=== PATIENT | female | born 1935 | race Caucasian/White ===

== ENCOUNTER 2016-12-10 19:16 | Observation (INO) | payer OTHER ==
--- NOTE | ~2016-12-10 | DS ---
Unit #: [id number] #: [id number] Patient: ESSIE IGLESIAS [id number] [address] [address] [id number] I MR#: [id number] NAME: ESSIE IGLESIAS ROOM: 303 Age: 81 Sex: F Admission Date: 12/10/2016 : 1935 Discharge Date: 12/11/2016 Attending Physician: Milton Jarquin M.D. Primary Care Physician: Dayne Alfaro M.D. DISCHARGE SUMMARY PRINCIPAL DIAGNOSES 1. Acute sinusitis and mastoiditis. 2. Dizziness secondary to #1 in combination with chronic dizziness. 3. Deconditioning. 4. Recent history of stroke. 5. Hypothyroidism with stable TSH. CONSULTANTS None. PROCEDURES None. CLINICAL HISTORY/HOSPITAL COURSE Ms. Iglesias is a 81-year-old female [facility] who presents back to the emergency department with swelling of her legs and complaining of dizziness which she describes to me as lightheadedness. CT scan of the head reveals left sphenoid sinusitis and mastoiditis and chronic ischemic changes and she was placed in observation for further evaluation. Today, patient states her dizziness is better. She is still complaining feeling a bit dizzy but is better. She is seen by physical therapy suggesting recurrent subacute rehab and, unfortunately, I don't have any inpatient criteria for this patient which I have discussed with her extensively. I will reinitiate home health and complete a course of antibiotics. DISCHARGE CONDITION Stable. DISCHARGE STATUS Discharge to home with home health. DISCHARGE MEDICATIONS 1. Omnicef 300 mg p.o. b.i.d. for ten days. 2. Loperamide 2 mg p.o. t.i.d. p.r.n. for diarrhea. 3. Meclizine 25 mg p.o. t.i.d. p.r.n. for dizziness. 4. Levothyroxine 125 mcg p.o. daily. DISCHARGE INSTRUCTIONS The patient was instructed to follow a heart health diet. She can increase her activity as tolerated under the care of physical therapy. Unit #: [id number] #: [id number] Patient: DELESSIE WOOD FOLLOWUP The patient will follow up with her primary care physician, Dr. Alfaro, in one week. Dictated by... Radha Kelley M.D. SILVANO/benson TD: 12/13/2016 07:37 JOB #: [id number] DISCHARGE SUMMARY X Radha Kelley MD X DISCHARGE SUMMARY
--- NOTE | ~2016-12-10 | BMI ---
[facility] Nutrition Therapy DATE: 12/11/16 Patient: ESSIE FITCH Physician: MINGO Address: [address] [place] [address] Room/Bed: [address] [place] [address], Zip: [place] [address] Admit Date: 12/10/16 Date of : 39 Height: 5 7 Weight: 253 115
--- NOTE | ~2016-12-10 | HP ---
Unit #: [id number] #: [id number] Patient: ESSIE FITCH [id number] [address] [address] [id number] I MR#: [id number] NAME: ESSIE FITCH ROOM: 303 Age: 81 Sex: F Admission Date: 12/10/2016 : 1935 Attending Physician: Milton Jarquin M.D. HISTORY AND PHYSICAL CHIEF COMPLAINT Dizziness. HISTORY OF PRESENT ILLNESS The patient is a 81-year-old female with history of esophageal cancer, hypothyroidism, and history of a CVA in the past, who presented to the [facility] complaining of the bilateral lower extremities and dizziness. The patient has been recently discharged from the [facility] status post recurrent falls and was diagnosed with CVA. The patient was discharged on Tuesday. The patient stated that patient was working with the physical therapy, then the patient was complaining of the swelling of the lower extremity legs, associated with dizziness that is spinning the room. The patient denies any fever, chills, nausea and vomiting. The patient had a CT of the head that showed acute left sphenoid sinusitis and fluid in the mastoid air cells bilaterally and chronic ischemic changes and old lacunar infarcts but no acute intracranial abnormality or edema. The patient was also found to have a UTI and is being transferred for admission for further management. The patient stated that she is not able to stand up on her feet secondary to the leg weakness and the edema. PAST MEDICAL HISTORY 1. History of esophageal cancer. 2. Hypothyroidism. 3. CVA. PAST SURGICAL HISTORY 1. History of appendectomy. 2. Foot surgery. 3. Oral surgery. 4. Stomach surgery. HOME MEDICATIONS 1. Demadex. 2. Florastor. 3. Lomotil. 4. Zofran. 5. Furosemide. 6. Levothyroxine. 7. Loperamide. 8. Meclizine. Iodine. Unit #: [id number] #: [id number] Patient: ESSIE FITCH SOCIAL HISTORY Remote smoker. Quit 11 years ago. Drinks alcohol occasionally. No history of illicit drug abuse. FAMILY HISTORY No family history. Reviewed and none. REVIEW OF SYSTEMS A 14-point review of systems performed and only pertinent positive findings as described above, remaining are negative. PHYSICAL EXAMINATION VITAL SIGNS: Temperature 96.9, pulse 98, respiratory rate 20, blood pressure 113/65. HEENT: Atraumatic, normocephalic. Pupils equal, round, and reactive to light and accommodation. Extraocular movements are intact. Dry mucous membrane. NECK: Supple. No JVD. LUNGS: Decreased air entry at the bases. No rhonchi, no wheezing. HEART: Regular rate and rhythm. ABDOMEN: Soft, positive bowel sounds. EXTREMITIES: Positive for trace pedal edema. NEUROLOGIC: Alert, awake, oriented x3. No gross focal motor deficit. DIAGNOSTIC STUDIES LABORATORY: Sodium 137, potassium 3.6, chloride 108, bicarb 25.3, glucose 85, BUN 14, creatinine 0.8, calcium 7.4, protein 5.5, alkaline phosphatase 186, AST 28, ALT 24. WBC 4.8, hemoglobin 10.5, hematocrit 32.2, platelets 300. BNP 240. UA shows small leukocyte esterase, positive nitrites, and 2+ urine bacteria. Troponin 0.02, CK level is 42. IMAGING: CT of the head shows acute left sphenoid sinusitis. Fluid in the mastoid air cells bilaterally. Chronic ischemic changes and old lacunar infarcts but no acute intracranial abnormality. Chest x-ray shows low lung volume films with diffuse interstitial change in both lungs left greater than right effusion suggests element of congestive failure. Postop changes in the right hemithorax. ASSESSMENT AND PLAN 1. Dizziness. 2. Urinary tract infection. 3. Acute left sphenoid sinusitis. 4. Weakness. PLAN 1. Admit patient as observation with telemetry. 2. Continue with IV antibiotics Rocephin. 3. Continue with meclizine 25 mg p.o. q.8 h. 4. Continue with Lasix. 5. OT and PT. 6. Repeat the labs again in the morning. 7. Further recommendations will follow. Unit #: [id number] #: [id number] Patient: ESSIE FITCH Dictated by Carolina Clayton TD: 12/10/2016 20:12 JOB #: [id number] HISTORY AND PHYSICAL X X HISTORY AND PHYSICAL
[2016-12-10] MEDS ORDERED: SYNTHROID125 PO (19:30)
[2016-12-10] MEDS ORDERED: DEMADEX PO (19:31)
[2016-12-10] MEDS ORDERED: FUROSEMIDE40 MG PO (19:32)
[2016-12-10] MEDS ORDERED: LOPERAMIDE HCL2 M1 PO (19:33)
[2016-12-10] MEDS ORDERED: ONDANSETRON HCL4 M1 PO (19:34)
[2016-12-10] MEDS ORDERED: DIGESTIVE PROB250 MG PO (19:36)
[2016-12-10] MEDS ORDERED: [UNRECOGNIZED DRUG - OTHER] (19:41)
[2016-12-10] MEDS ORDERED: MOTION RELIEF25 MG PO (19:42)
[2016-12-11 05:46] LABS: BASOPHIL% 0.9 % (0-2.5); EOSINOPHIL# 0.1 X10e3 (0-0.7); EOSINOPHIL% 2.3 % (0.0-7.0); HEMATOCRIT 29.2 % (35.0-45.0); HEMOGLOBIN 9.5 gm/dL (12.0-16.0); LYMPHOCYTE# 1.1 X10e3 (1.0-3.5); LYMPHOCYTE% 25.5 % (17.0-45.0); MEAN CELL VOLUME 91.7 FL (83-96); MEAN CORPUSCULAR HEMOGLOBIN 29.7 PG (28-34); MEAN CORPUSCULAR HGB CONC 32.4 g/dL (30-36); MEAN PLATELET VOLUME 7.9 FL (6.5-11.5); MONOCYTE# 0.6 X10e3 (0-1.0); MONOCYTE% 13.5 % (3.0-12.0); NEUTROPHIL# 2.4 X10e3 (1.5-7.1); NEUTROPHIL% 57.8 % (40-75); PLATELET COUNT 236 X10e3 (140-420); RED BLOOD COUNT 3.18 X10e (3.90-5.30); RED CELL DISTRIBUTION WIDTH 20.9 % (11.0-15.5); WHITE BLOOD COUNT 4.1 X10e3 (4.0-10.5)
[2016-12-11 05:51] LABS: DIFF IND NO
[2016-12-11 06:38] LABS: BLOOD UREA NITROGEN 15 mg/dL (9-23); BUN/CREATININE RATIO 18.75; CALCIUM SERUM 7.3 mg/dL (8.4-10.2); CARBON DIOXIDE 27 mmol/L (22-31); CHLORIDE 107 mmol/L (100-111); CREATININE SERUM 0.8 mg/dL (0.6-1.4); GLOM FILT RATE Estimated ABOVE60 mL/min (>60); GLUCOSE FASTING 80 mg/dL (70-110); POTASSIUM 3.8 mmol/L (3.5-5.1); SODIUM 141 mmol/L (135-145)
[2016-12-11] MEDS ORDERED: OMNICEF300 M1 PO (12:14)
== END 2016-12-11 16:00 | disposition home or self-care (01) ==
LOC: C3A PCU 19:16
PROVIDERS: Internal Medicine
DX: J01.30 Acute sphenoidal sinusitis, unspecified (principal); H70.90 Unspecified mastoiditis, unspecified ear; R42 Dizziness and giddiness; N39.0 Urinary tract infection, site not specified; Z86.73 Personal history of transient ischemic attack (TIA), and cerebral infarction without residual deficits; E03.9 Hypothyroidism, unspecified; R53.1 Weakness; Z85.01 Personal history of malignant neoplasm of esophagus; Z87.891 Personal history of nicotine dependence
CPT/HCPCS: 80048; 85025; 94760; 96372; 96374; 96375; 97110; 97162; 97166; 97530; G0378; G8978-GP; G8979-GP; G8987-GO; G8988-GO; J0696; J1650; J1940